=== PATIENT | male | born 1985 | race Caucasian/White ===

== ENCOUNTER 2019-10-31 19:24 | Emergency (ER) | payer OTHER ==
[~2019-10-31] VITALS: Ht 177.8 cm; Wt 72.6 kg
[2019-10-31 19:27] VITALS: Ht 177.8 cm; Wt 72.6 kg
[2019-10-31 20:11] VITALS: BP 143/98
== END 2019-10-31 20:11 | disposition home or self-care (01) ==
LOC: ED 19:24
DX: T15.12XA Foreign body in conjunctival sac, left eye, initial encounter (principal); W45.8XXA Other foreign body or object entering through skin, initial encounter; Y93.89 Activity, other specified; Y92.89 Other specified places as the place of occurrence of the external cause; Y99.8 Other external cause status